=== PATIENT | female | born 1965 | race Caucasian/White ===

== ENCOUNTER 2023-03-22 17:45 | Emergency (ER) | payer OTHER | END 2023-03-22 18:32 | disposition home or self-care (01) | LOC: VM.ED 17:45 | DX: R04.0 Epistaxis (principal); I10 Essential (primary) hypertension; Z90.710 Acquired absence of both cervix and uterus | CPT/HCPCS: 30901; 99283 ==

== ENCOUNTER 2024-04-15 11:59 | Emergency (ER) | payer OTHER ==
[2024-04-15] MEDS ORDERED: Oxymetazoline 0.05% Nasal Spray 30 ML Bottle ONE (12:04)
== END 2024-04-15 12:30 | disposition home or self-care (01) ==
LOC: VM.ED 11:59
DX: L98.8 Other specified disorders of the skin and subcutaneous tissue (principal); I10 Essential (primary) hypertension; E03.9 Hypothyroidism, unspecified; Z88.8 Allergy status to other drugs, medicaments and biological substances; Z91.041 Radiographic dye allergy status; Z90.710 Acquired absence of both cervix and uterus
CPT/HCPCS: 99283; A9270-GY

== ENCOUNTER 2024-04-17 19:47 | Emergency (ER) | payer OTHER | END 2024-04-17 20:16 | disposition home or self-care (01) | LOC: VM.ED 19:47 | DX: R04.0 Epistaxis (principal); I10 Essential (primary) hypertension; E03.9 Hypothyroidism, unspecified; Z90.710 Acquired absence of both cervix and uterus; Z91.041 Radiographic dye allergy status; Z88.8 Allergy status to other drugs, medicaments and biological substances | CPT/HCPCS: 30901; 99283-25 ==